=== PATIENT | male | born 2000 | race Caucasian/White ===

== ENCOUNTER 2020-08-04 13:31 | Emergency (ER) | payer MEDICAID ==
[~2020-08-04] VITALS: Ht 177.8 cm; Wt 85.7 kg
[2020-08-04 13:59] VITALS: BP_SYST 152
[2020-08-04] MEDS ORDERED: NAPR-688 PO (14:44)
[2020-08-04] MEDS ORDERED: TRAM50TA2 PO (14:44)
[2020-08-04 15:00] VITALS: BP_SYST 152
== END 2020-08-04 15:00 | disposition home or self-care (01) ==
LOC: SED 13:31
DX: S93.492A Sprain of other ligament of left ankle, initial encounter (principal); Z88.2 Allergy status to sulfonamides; X50.0XXA Overexertion from strenuous movement or load, initial encounter; Y93.67 Activity, basketball; Y92.89 Other specified places as the place of occurrence of the external cause; Y99.8 Other external cause status
CPT/HCPCS: 99283